=== PATIENT | female | born 1950 | race Caucasian/White ===

== ENCOUNTER → 2024-06-27 | Day surgery (SDC) | payer MEDICARE ==
[2024-06-26 11:53] LABS: BASOPHILS % 0.4 % (0.0-1.0); EOSINOPHILS # (AUTO) 0.1 (0.0-0.4); EOSINOPHILS % 1.7 % (0.0-6.0); HEMATOCRIT 44.5 % (34.2-44.1); HEMOGLOBIN 14.4 g/dL (12.0-16.0); LYMPHOCYTES # (AUTO) 2.6 (1.0-3.2); LYMPHOCYTES % 33.5 % (18.0-39.1); MEAN CORPUSCULAR HEMOGLOBIN 29.4 pg (28-32); MEAN CORPUSCULAR HGB CONC 32.4 g/dL (31-35); MONOCYTES # (AUTO) 0.8 (0.2-0.8); MONOCYTES % 9.8 % (4.4-11.3); NEUTROPHILS # (AUTO) 4.3 (2.1-6.9); NEUTROPHILS % 54.2 % (38.7-80.0); PLATELET COUNT 288 x10e3/uL (140-360); RED BLOOD COUNT 4.89 x10e6/uL (3.6-5.1); RED CELL DISTRIBUTION WIDTH 12.7 % (11.7-14.4); WHITE BLOOD COUNT 7.86 x10e3/uL (4.8-10.8)
[2024-06-26 12:22] LABS: ANION GAP 15.3 mmol/L (8-16); CALCIUM 10.5 mg/dL (8.4-10.2); CREATININE, SERUM 0.91 mg/dL (0.57-1.11); POTASSIUM 4.3 mmol/L (3.5-5.1)
[~2024-06-27] MED LIST: ACETAMINOPHEN 1000 MG/100 ML IV PRN; ASPIRIN 325 MG TAB PO SCH; BISOPROLOL-HCT1 EAC1 PO; CALCIUM PO; CELECOXIB 100 MG CAP PO SCH; DEXAMETHASONE SOD PHOS 10 MG/1 ML VIAL ONE; DIPHENHYDRAMINE HCL INJ 50 MG/ML VIAL IV PRN; DOCUSATE SODIUM 100 MG CAP PO PRN; FENTANYL CITRATE/PF 100MCG/2 ML INJ ONE; FISH OIL 1,0001 EAC7 PO; HYDROCODONE/APAP 5MG-325MG TAB PO PRN; HYDROCODONE/APAP 7.5MG-325MG 1 EA TAB ONE; LIDOCAINE HCL 2% LOCAL INJ 5 ML SDV VIAL INJ ONE; MIDAZOLAM HCL 2 MG/2 ML VIAL ONE; MULTI-VITAMIN1 EACH PO; ONDANSETRON HCL INJ 2MG/ML 2ML 2 MG/ML VIAL IV PRN; ONDANSETRON HCL INJ 2MG/ML 2ML 2 MG/ML VIAL ONE; PROPOFOL IV EMULSION 10 MG/ML 20 ML VIAL ONE; ROPIVACAINE 0.5% 5 MG/ML 30 ML SDV ONE; ROPIVACAINE/EPI/CLONIDINE/KET 50 ML SYRINGE INJ ONE; SEVOFLURANE INHAL SOLN 250 ML PEN BTL ONE; SIMVASTATIN20 MG PO; SODIUM CHLORIDE 0.9% 1000ML 1,000 ML IV SCH; SODIUM CHLORIDE 0.9% 500ML 500 ML ONE; TRANEXAMIC ACID 20 ML ONE; VITAMIN E1000 UNI1 PO; Vancomycin IV 500 MG ONE
[2024-06-27] MEDS: LACTATED RINGER'S 1,000 ML ONE (09:13)
[2024-06-27] MEDS: CELECOXIB 200 MG CAP ONE (09:14)
[2024-06-27] MEDS: DEXAMETHASONE SOD PHOS 10 MG/1 ML VIAL ONE (09:14)
[2024-06-27] MEDS: CEFAZOLIN SODIUM 2 GM ONE (09:14)
[2024-06-27] MEDS: GABAPENTIN 300 MG CAP ONE (09:14)
[2024-06-27] MEDS: SCOPOLAMINE 1 MG PATCH ONE (10:15)
[2024-06-27 13:02] VITALS: TEMP 97.2
[2024-06-27] MEDS: MEPERIDINE HCL INJ 25 MG/ML VIAL ONE (13:30)
[2024-06-27 15:00] VITALS: BP 113/60; PULSE 70; RESP 14; O2SAT 97
[2024-06-27] MEDS: HYDROCODONE/APAP 7.5MG-325MG 1 EA TAB PO PRN (15:10)
== END | disposition home health service (06) ==
LOC: OR 08:42
PROVIDERS: ATTEND Specialist
DX: M17.11 Unilateral primary osteoarthritis, right knee (principal); G89.29 Other chronic pain; I10 Essential (primary) hypertension; E78.5 Hyperlipidemia, unspecified; E66.01 Morbid (severe) obesity due to excess calories; Z68.39 Body mass index [BMI] 39.0-39.9, adult; K57.90 Diverticulosis of intestine, part unspecified, without perforation or abscess without bleeding; R94.31 Abnormal electrocardiogram [ECG] [EKG]; Z85.41 Personal history of malignant neoplasm of cervix uteri; Z01.812 Encounter for preprocedural laboratory examination
CPT/HCPCS: 27447; 36415; 73560; 80048; 85025; 86850; 86900; 93005; 97110; 97116; 97161; C1713 ×2; C1776 ×2; J0690; J1100; J2001; J2175; J2250; J2405; J2704; J2795; J3010; J3370; J7040; J7121

== ENCOUNTER 2024-09-13 13:56 | Outpatient (RCR) | payer MEDICARE ==
[~2024-09-13 13:56] MED LIST changes: -ACETAMINOPHEN 1000 MG/100 ML IV PRN; -ASPIRIN 325 MG TAB PO SCH; -CELECOXIB 100 MG CAP PO SCH; -DEXAMETHASONE SOD PHOS 10 MG/1 ML VIAL ONE; -DIPHENHYDRAMINE HCL INJ 50 MG/ML VIAL IV PRN; -DOCUSATE SODIUM 100 MG CAP PO PRN; -FENTANYL CITRATE/PF 100MCG/2 ML INJ ONE; -HYDROCODONE/APAP 5MG-325MG TAB PO PRN; -HYDROCODONE/APAP 7.5MG-325MG 1 EA TAB ONE; -LIDOCAINE HCL 2% LOCAL INJ 5 ML SDV VIAL INJ ONE; -MIDAZOLAM HCL 2 MG/2 ML VIAL ONE; -ONDANSETRON HCL INJ 2MG/ML 2ML 2 MG/ML VIAL IV PRN; -ONDANSETRON HCL INJ 2MG/ML 2ML 2 MG/ML VIAL ONE; -PROPOFOL IV EMULSION 10 MG/ML 20 ML VIAL ONE; -ROPIVACAINE 0.5% 5 MG/ML 30 ML SDV ONE; -ROPIVACAINE/EPI/CLONIDINE/KET 50 ML SYRINGE INJ ONE; -SEVOFLURANE INHAL SOLN 250 ML PEN BTL ONE; -SODIUM CHLORIDE 0.9% 1000ML 1,000 ML IV SCH; -SODIUM CHLORIDE 0.9% 500ML 500 ML ONE; -TRANEXAMIC ACID 20 ML ONE; -Vancomycin IV 500 MG ONE
== END 2024-09-16 ==
LOC: PT 13:56
PROVIDERS: ATTEND Physician Assistant
DX: Z47.1 Aftercare following joint replacement surgery (principal); Z96.651 Presence of right artificial knee joint; M25.561 Pain in right knee; M62.81 Muscle weakness (generalized)

== ENCOUNTER 2024-10-16 13:49 | Outpatient (RCR) | payer MEDICARE | END 2024-10-17 | LOC: PT 13:49 | PROVIDERS: ATTEND Physician Assistant | DX: Z47.1 Aftercare following joint replacement surgery (principal); Z96.651 Presence of right artificial knee joint; M25.561 Pain in right knee; M62.81 Muscle weakness (generalized) ==

== ENCOUNTER 2024-10-27 11:00 | Outpatient (RCR) | payer MEDICARE | END 2024-11-17 | LOC: PT 11:00 | PROVIDERS: ATTEND Physician Assistant | DX: Z47.1 Aftercare following joint replacement surgery (principal); Z96.651 Presence of right artificial knee joint; M25.561 Pain in right knee; M62.81 Muscle weakness (generalized) ==